=== PATIENT | female | born 1970 | race Caucasian/White ===

== ENCOUNTER 2017-02-27 19:45 | Inpatient (IN) | payer BC, OTHER ==
[~2017-02-27] VITALS: Ht 160 cm; Wt 57.1 kg
[2017-02-27] MEDS ORDERED: MoRPHine SULFATE 2 MG/ML CARP IV STA (20:27)
[2017-02-27] MEDS ORDERED: ONDANSETRON INJ 2 MG/ML 2 ML VIAL IV STA ×2 (20:27→22:07)
[2017-02-27] MEDS ORDERED: SODIUM CHLORIDE 0.9% 1000ML 1,000 ML IV ONE (20:30)
[2017-02-27 20:54] LABS: BASO % 0.4 %; BASO ABS # 0.03 K/uL (0-0.2); COMPLETE YES; EOS % 4.1 %; HEMATOCRIT 39.5 % (37-47); IG% 0.1 %; LYMPH % 11.8 %; LYMPH ABS # 0.99 K/uL (1.2-3.4); MEAN CELL VOLUME 92.7 fL (80-100); MEAN CORPUSCULAR HEMOGLOBIN 31.2 pg (25-34); MEAN CORPUSCULAR HGB CONC 33.7 g/dl (32-36); MEAN PLATELET VOLUME 9.7 fL (7.4-10.4); MONO % 8.7 %; NEUT % 74.9 %; PLATELET COUNT 215 K/uL (130-400); RED BLOOD COUNT 4.26 M/uL (4.2-5.4); WHITE BLOOD COUNT 8.38 K/uL (4.8-10.8)
[2017-02-27 21:11] LABS: ALT/SGPT 21 U/L (12-78); BLOOD UREA NITROGEN 11 mg/dl (7-18); BUN/CREATININE RATIO 11.1 (10-20); CARBON DIOXIDE 28 mmol/L (21-32); CHLORIDE 105 mmol/L (98-107); GLUCOSE 96 mg/dl (70-99); POTASSIUM 3.6 mmol/L (3.5-5.1); SODIUM 141 mmol/L (136-145)
[2017-02-27 21:14] LABS: ALKALINE PHOSPHATASE 44 U/L (45-117); AST/SGOT 19 U/L (15-37)
[2017-02-27 21:40] LABS: URINE APPEARANCE CLEAR (CLEAR); URINE BILIRUBIN NEG (NEG); URINE COLOR YELLOW; URINE NITRITE NEG (NEG); URINE PH 6.5 (4.5-7.5); URINE SPECIFIC GRAVITY 1.014 (1.000-1.030); UROBILINOGEN NEG (NEG)
[2017-02-27 21:46] LABS: MANUAL MICROSCOPIC REQUIRED? NO; REVIEW REQ? NO
[2017-02-27 22:00] LABS: CALCIUM 8.2 mg/dl (8.5-10.1)
[2017-02-27] MEDS ORDERED: SODIUM CHLORIDE 0.9% 1000ML 1,000 ML IV STA (22:07)
[2017-02-27] MEDS ORDERED: KETOROLAC TROMETHAMINE 30 MG/ML VIAL IV STA (22:07)
[2017-02-27] MEDS ORDERED: OPTIRAY 320 IV PRN (22:15)
--- NOTE | 2017-02-27 22:45 | DIAGNOSTIC IMAGING REPORT ---
ABDOMEN AND PELVIS CT WITH IV CONTRAST CT DOSE: 265.19 mGy.cm HISTORY: Pelvic pain acute lower abd pain TECHNIQUE: Multiaxial CT images of the abdomen and pelvis were performed following the use of intravenous contrast. COMPARISON STUDY: None. FINDINGS: Lung bases are considered clear. Several small hypodensities in the liver which are suggestive of small cysts versus small hemangiomas. A potential trace amount of pericholecystic edema. Right upper quadrant ultrasonography is suggested. Kidneys enhance uniformly. There is no evidence for hydronephrosis. Spleen and pancreas appear unremarkable. There are several slightly distended loops of small bowel suggesting a mild reactive ileus. The appendix appears to be normal. There is findings of acute sigmoid diverticulitis. Lateral wall thickening as well as moderate pericolonic infiltrative changes present. There is no evidence for abscess collection or obstructive change. Intrauterine device is present. There is trace amount of free fluid within the pelvic cul-de-sac. IMPRESSION: 1. Acute sigmoid diverticulitis. 2. Moderate wall thickening and moderate pericolonic infiltrative change. 3. No evidence for abscess collection or obstruction. 4. Potential slight gallbladder wall edema and pericholecystic edematous change. Right upper quadrant ultrasonography is suggested as follow-up Electronically signed by: Davin Adkins M.D. 02/27/2017 10:44 PM Dictated Date/Time: 02/27/2017 10:40 PM
[2017-02-27] MEDS ORDERED: METRONIDAZOLE 500MG / 100ML NSS IV STA (22:49)
[2017-02-27] MEDS ORDERED: CIPROFLOXACIN 400MG / 200ML D5W IV STA (22:49)
[2017-02-27] MEDS ORDERED: LACTATED RINGER'S 1000ML 1,000 ML IV SCH (23:30)
[2017-02-27] MEDS ORDERED: BUPRTAB PO (23:49)
[2017-02-27] MEDS ORDERED: FLUT0.15 NAE (23:49)
[2017-02-28 00:06] LABS: MAGNESIUM 2.2 mg/dl (1.8-2.4)
[2017-02-28] MEDS ORDERED: TRAMADOL HCL 50 MG TAB PO PRN (00:30)
[2017-02-28] MEDS ORDERED: ACETAMINOPHEN 325 MG TAB PO PRN (00:30)
[2017-02-28] MEDS ORDERED: ONDANSETRON INJ 2 MG/ML 2 ML VIAL IV PRN (00:30)
[2017-02-28] MEDS ORDERED: LACTATED RINGER'S 1000ML 1,000 ML IV ONE ×2 (00:30→08:45)
[2017-02-28] MEDS ORDERED: LORAZEPAM 2 MG/ML 1 ML VIAL IV PRN (00:30)
[2017-02-28] MEDS ORDERED: PROMETHAZINE HCL INJ 12.5 MG in SODIUM CHLORIDE 0.9% 50ML 50 ML IV PRN (00:30)
[2017-02-28] MEDS ORDERED: ACETAMINOPHEN 325 MG TAB ONE (00:49)
--- NOTE | 2017-02-28 02:08 | EMERGENCY ROOM VISIT NOTE ---
ED Visit Note First contact with patient: 19:58 Chief Complaint: Abdominal pain. History of Present Illness: Ms. Palmer is a 46 year-old white female complaining who ambulates into the ED accompanied by her mother complaining of lower abdominal pain. Historically patient reports no gastrointestinal or pelvic diseases or previous abdominal surgeries. Patient reports an acute onset of lower abdominal pain that started approximately 7 hours ago. She reports initially it was mild and has gradually increased in intensity. She describes her pain as a cramping sensation and places her discomfort throughout the lower abdomen without side prominence. She rates her discomfort 7/10. Her pain is radiating into the back. She has not identified any aggravating or alleviating factors related to the pain. She reports taking a Zantac tablet for her symptoms without relief shortly after the onset. Associated with her pain intermittently she has warm sensations and then chills but denies shelbie fever, intermittently she has lightheadedness and dizziness which tends to be transient, she has been nauseated but has not vomited. She denies any previous similar symptoms. Additionally she does report that she has had an IUD in place for many years and she has noted some minimal spotting today. Patient denies skin eruptions, skin color changes, upper respiratory tract symptoms, shortness of breath, chest pain, diarrhea, constipation, rectal bleeding, black/tarry stools, urinary symptoms, hematuria, vaginal discharge. Review of Systems: As noted above in history of present illness. All body systems were reviewed and found to be negative as noted above. Past Medical History: Seasonal allergies. Current Medications: Wellbutrin, Flonase. Allergies to Medications: Patient denies. Social History: Patient is currently employed; she lives with her son and feels safe in her home environment; she denies tobacco use; she admits to alcohol use. Physical Examination: Vital Signs: Date Time Temp Pulse Resp B/P Pulse Ox O2 Delivery O2 Flow Rate FiO2 02/28/17 01:12 108/56 02/28/17 01:08 62 02/28/17 01:06 72 95 02/28/17 01:01 97/58 02/28/17 00:36 68 16 97 02/28/17 00:31 114/71 02/28/17 00:06 75 97 02/28/17 00:01 105/68 02/27/17 23:41 70 17 02/27/17 23:31 116/64 02/27/17 23:11 76 16 98 02/27/17 23:06 73 15 108/67 97 02/27/17 23:01 77 16 104/64 97 02/27/17 22:56 74 16 106/66 98 02/27/17 22:51 76 17 107/66 98 02/27/17 22:46 73 16 110/64 98 02/27/17 22:41 75 14 108/64 100 02/27/17 22:39 78 16 111/60 99 Room Air 02/27/17 22:38 111/60 02/27/17 22:21 108/72 02/27/17 22:19 88 19 95 02/27/17 22:16 116/75 02/27/17 22:14 76 14 99 02/27/17 22:11 75 16 95/50 98 Room Air 02/27/17 22:09 75 15 85/51 98 Room Air 02/27/17 22:06 100/59 02/27/17 22:05 62 12 98 02/27/17 22:01 92/57 02/27/17 22:00 60 12 95 02/27/17 21:58 94/48 02/27/17 21:55 68 13 98 02/27/17 21:52 70/34 02/27/17 21:50 61 19 98 02/27/17 21:48 82/51 02/27/17 21:45 57 7 97 02/27/17 21:40 61 14 98 02/27/17 21:36 71 02/27/17 21:35 58 16 98 02/27/17 21:31 75/41 02/27/17 21:30 53 10 99 02/27/17 21:26 94 02/27/17 21:25 87 17 99 02/27/17 21:23 84 20 123/74 02/27/17 21:22 123/74 02/27/17 19:53 37.5 91 18 144/79 97 Room Air GENERAL: 46-year-old female in mild to moderate distress due to pain, nontoxic- appearing, febrile and hemodynamically stable. NEUROLOGICAL: Awake, alert and oriented to person, place and time. Answering questions appropriately and following commands. Normal gait. Good hand eye coordination. SKIN: Warm, dry and pink. No soft tissue eruptions or trauma noted. HEENT: Atraumatic and normocephalic. PERRLA. Sclera white and conjunctiva pink. Oral cavity moist and pink. Pharynx is nonerythematous or edematous. Speech normal. No lymphadenopathy. Trachea midline. No jugular venous distention. BACK: No tenderness over the bony spine. No CVA tenderness. THORAX: Lungs sounds are clear to auscultation and equal bilaterally with symmetrical chest wall. No wheezing, rales or rhonchi. No crepitus, tenderness , subcutaneous air or deformities noted. HEART: Regular rate and rhythm. No gallops, rubs or murmurs are appreciated. ABDOMEN: Flat and soft with mild tenderness in the right and left lower quadrants. Decreased bowel sounds in all quadrants. No guarding, rigidity or organomegaly. EXTREMITIES: Moves all extremities well on command and with purpose. All distal neurovascular statuses are intact and equal bilaterally. ED Course: Patient is assessed as noted above. Laboratory Testing: Test 02/27/17 20:40 02/27/17 21:30 Range/Units White Blood Count 8.38 4.8-10.8 K/uL Red Blood Count 4.26 4.2-5.4 M/uL Hemoglobin 13.3 12.0-16.0 g/dL Hematocrit 39.5 37-47 % Mean Corpuscular Volume 92.7 80-100 fL Mean Corpuscular Hemoglobin 31.2 25-34 pg Mean Corpuscular Hemoglobin Concent 33.7 32-36 g/dl Platelet Count 215 130-400 K/uL Mean Platelet Volume 9.7 7.4-10.4 fL Neutrophils (%) (Auto) 74.9 % Lymphocytes (%) (Auto) 11.8 % Monocytes (%) (Auto) 8.7 % Eosinophils (%) (Auto) 4.1 % Basophils (%) (Auto) 0.4 % Neutrophils # (Auto) 6.28 1.4-6.5 K/uL Lymphocytes # (Auto) 0.99 1.2-3.4 K/uL Monocytes # (Auto) 0.73 0.11-0.59 K/uL Eosinophils # (Auto) 0.34 0-0.5 K/uL Basophils # (Auto) 0.03 0-0.2 K/uL RDW Standard Deviation 45.4 36.4-46.3 fL RDW Coefficient of Variation 13.2 11.5-14.5 % Immature Granulocyte % (Auto) 0.1 % Immature Granulocyte # (Auto) 0.01 0.00-0.02 K/uL Sodium Level 141 136-145 mmol/L Potassium Level 3.6 3.5-5.1 mmol/L Chloride Level 105 98-107 mmol/L Carbon Dioxide Level 28 21-32 mmol/L Anion Gap 8.0 3-11 mmol/L Blood Urea Nitrogen 11 7-18 mg/dl Creatinine 1.00 0.60-1.20 mg/dl Est Creatinine Clear Calc Drug Dose 56.9 ml/min Estimated GFR () 78.2 Estimated GFR (Non- 67.5 BUN/Creatinine Ratio 11.1 10-20 Random Glucose 96 70-99 mg/dl Calcium Level 8.2 8.5-10.1 mg/dl Magnesium Level 2.2 1.8-2.4 mg/dl Total Bilirubin 0.4 0.2-1 mg/dl Direct Bilirubin < 0.1 0-0.2 mg/dl Aspartate Amino Transf (AST/SGOT) 19 15-37 U/L Alanine Aminotransferase (ALT/SGPT) 21 12-78 U/L Alkaline Phosphatase 44 45-117 U/L Total Protein 6.3 6.4-8.2 gm/dl Albumin 3.3 3.4-5.0 gm/dl Lipase 152 73-393 U/L Thyroid Stimulating Hormone (TSH) 1.130 0.300-4.500 uIu/ml Urine Color YELLOW Urine Appearance CLEAR CLEAR Urine pH 6.5 4.5-7.5 Urine Specific [place] 1.014 1.000-1.030 Urine Protein NEG NEG Urine Glucose (UA) NEG NEG Urine Ketones NEG NEG Urine Occult Blood TRACE NEG Urine Nitrite NEG NEG Urine Bilirubin NEG NEG Urine Urobilinogen NEG NEG Urine Leukocyte Esterase NEG NEG Urine WBC (Auto) 0 0-5 /hpf Urine RBC (Auto) 0-4 0-4 /hpf Urine Hyaline Casts (Auto) 0 0-5 /lpf Urine Epithelial Cells (Auto) 10-20 0-5 /lpf Urine Bacteria (Auto) NEG NEG Urine Test NEG NEG IV Contrast Abdominal/Pelvic CT: Was reviewed by myself and read by the radiologist and shows finding consistent with acute sigmoid diverticulitis with no evidence of abscess collection or obstructive changes. There were several slight distended loops of small bowel suggestive of reactive ileus. Radiologist also notes a trace amount of pericholecystic edema and recommends right upper quadrant ultrasound. Patient was hydrated with normal saline and received 2 mg of morphine IV for pain and 4 mg of Zofran IV. Shortly after she received her IV morphine her blood pressure dropped into the 70s systolic range and she reported increasing pain and nausea. She was rehydrated with normal saline and her pressure gay to the 90s systolic. She was feeling much better and had decreased pain and nausea. Additionally patient was given 400 mg of ciprofloxacin IV and 500 mg of Flagyl IV for her diverticulitis. Patient was reassessed multiple times during her stay in the emergency department. Patient's case was reviewed with Dr. Caceres; he in the belly assessed the patient we agreed on diagnostic approach, treatment, disposition and plan. Patient's case was consulted with case management and Dr. Silva, [facility] hospitalist, for medical observation/admission. Patient was educated about today's findings. Clinical Impression: Acute diverticulitis. Profound hypertension with morphine. Mild pericholecystic fluid. Acute abdominal pain. Decision-Making: Initially my differential diagnosis I considered appendicitis, ovarian torsion, ovarian cyst rupture, ectopic , perforated viscus and other causes. Disposition and Plan: Patient be brought in the hospital for observation by Dr. Silva; please see his notes and orders for final disposition and plan.
[2017-02-28 02:50] VITALS: BP 104/66; PULSE 68; TEMP 36.7; O2SAT 98
[2017-02-28 02:52] VITALS: BP 104/66; PULSE 68; TEMP 36.7; O2SAT 98; Ht 160 cm; Wt 57.1 kg
[2017-02-28] MEDS ORDERED: LORAZEPAM INJ 0.5 MG in SYRINGE 0.75 ML IV PRN (04:15)
[2017-02-28] MEDS ORDERED: LACTATED RINGER'S 1000ML 1,000 ML IV SCH (04:15)
[2017-02-28] MEDS ORDERED: hydrOXYzine HCL 10 MG TAB PO PRN (04:15)
[2017-02-28] MEDS ORDERED: CALCIUM GLUCONATE 10% 1,000 MG in SODIUM CHLORIDE 0.9% 50ML 50 ML IV STA (05:38)
--- NOTE | 2017-02-28 06:55 | HISTORY & PHYSICAL EXAMINATION ---
DATE OF ADMISSION: 02/28/2017 PRIMARY CARE PHYSICIAN: Dr. Tasha Hernandez. CHIEF COMPLAINT: Abdominal pain. HISTORY OF PRESENT ILLNESS: Hx obtained from px and records. Medical history significant for depression, past tobacco abuse. This afternoon, patient noted hypogastric discomfort, achy, no previous episodes. Good bowel movement,non-bloody.. No fever, no chills. No hematuria. No previous episodes. Coincidentally had peanuts during a marathon yesterday. Brought to the Emergency Room. Blood pressure dropped down to the 70s after being given morphine. CAT scan abdomen and pelvis showed acute sigmoid diverticulitis, moderate wall thickening and moderate pericolonic infiltrative change, no abscess collection. GB thickening. RUQ US recommended. Patient was given Cipro and Flagyl in the Emergency Room. MEDICAL HISTORY: As above. No previous endoscopies. SURGERIES: parotid tumor excision. HOME MEDICATIONS: Include bupropion, fluticasone. ALLERGIES: ATIVAN AND PREDNISONE CAUSING EMOTIONALITY. FAMILY HISTORY: Unknown. The patient adopted. SOCIAL HISTORY: [email or web address] employee. REVIEW OF SYSTEMS: As per HPI, all other ROS negative. PHYSICAL EXAMINATION: VITAL SIGNS: Blood pressure was noted to be initially 144/69, later 72/50, later 116/75; pulse rate 70, RR 17, temperature 37.5, sats 97% on room air. GENERAL: Noted to be anxious, no respiratory distress. SKIN: Normal color. HEENT: [place] palpebral conjunctivae. Dry mucosa. NECK: No JVD. supple CHEST: Clear to auscultation. HEART: RRR ABDOMEN: Hypogastric tenderness. EXTREMITIES: No edema. no tenderness NEUROLOGIC: No gross focality. LABORATORY DATA: Hemoglobin was noted to be 13, hematocrit 39, white cells 8.3, platelets 215. Sodium 140, potassium 3.6, chloride 105, CO2 28, BUN 20 creatinine 1, glucose was noted to be 96. LFTs normal. IMAGING DATA: CT of the abdomen and pelvis as above. ASSESSMENT: 1. Acute diverticulitis patient not septic 2. gallbladder edema on CT cholecystitis vs over-read. no RUQ tenderness on clinical exam 3. narcotic sensitivity 4. past tobacco use. PLAN: GMF IVF, bowel rest for now. analgesia (no Morphine given marked sensitivity,add Morphine to ADR list for future precaution) Cipro and Flagyl. Gallbladder ultrasound. RE abn GB on CT Outpatient colonoscopy Surgery opinion if GB US shows definite cholecystitis NPO. sips for now, advance to clears if GB US negative for cholecystitis DVT prophylaxis, SCDs. Full code MTDD
[2017-02-28] MEDS ORDERED: CIPROFLOXACIN 500 MG TAB PO SCH (08:00)
[2017-02-28] MEDS ORDERED: METRONIDAZOLE / NSS 500 MG in PREMIXED NSS 100 ML IV SCH (08:00)
[2017-02-28] MEDS ORDERED: METRONIDAZOLE 500 MG TAB PO SCH (08:00)
--- NOTE | 2017-02-28 08:10 | DIAGNOSTIC IMAGING REPORT ---
ABDOMINAL ULTRASOUND, RIGHT UPPER QUADRANT HISTORY: Abdominal pain. COMPARISON: CT of the abdomen and pelvis February 27, 2017 FINDINGS: Liver morphology is normal. Several hepatic cysts are noted. There is no biliary ductal dilatation. Pancreas is unremarkable. Sludge is noted within the gallbladder. There are suspected tiny calculi within the gallbladder. There is no significant gallbladder wall thickening. There is no right hydronephrosis. IMPRESSION: 1. Gallbladder sludge and suspected small stones within the gallbladder. No evidence of acute cholecystitis. 2. No biliary ductal dilatation. 3. Several hepatic cysts. Electronically signed by: Abraham Tineo M.D. 02/28/2017 8:09 AM Dictated Date/Time: 02/28/2017 8:07 AM
[2017-02-28] MEDS: BuPROPion XL 150 MG TABCR PO SCH (08:21)
[2017-02-28] MEDS: FLUTICASONE PROPIONATE NA SPR 16 GM BTL NAE SCH (08:21)
[2017-02-28] MEDS: IBUPROFEN 200 MG TAB PO PRN (08:22)
[2017-02-28 08:57] VITALS: BP 107/70; PULSE 67; TEMP 36.8; O2SAT 98
[2017-02-28 09:45] LABS: BUN/CREATININE RATIO 7.5 (10-20); CREATININE 0.85 mg/dl (0.60-1.20); POTASSIUM 3.6 mmol/L (3.5-5.1)
[2017-02-28 09:59] LABS: CALCIUM 8.3 mg/dl (8.5-10.1)
[2017-02-28] MEDS ORDERED: CIPROFLOXACIN 500 MG TAB PO ONE (10:00)
[2017-02-28] MEDS ORDERED: CIPROFLOXACIN / D5W 400 MG in PREMIXED IN D5W 200 ML IV SCH (10:00)
[2017-02-28] MEDS: KETOROLAC TROMETHAMINE 30 MG/ML VIAL IV PRN ×2 (11:38→20:31)
[2017-02-28] MEDS: METRONIDAZOLE 500 MG TAB PO SCH ×2 (13:40→20:29)
[2017-02-28 15:10] VITALS: BP 116/71; PULSE 74; TEMP 36.5; O2SAT 97
--- NOTE | 2017-02-28 16:56 | Progress Note ---
Subjective Date of Service: February 28, 2017. Subjective Pt evaluation today including: conversation w/ patient, conversation w/ family , physical exam, lab review, review of studies, review of inpatient medication list Saw/examined the patient in room 461 She is doing okay, pain has subsided States she came in with lower abdominal pain; no nausea/vomiting no fevers/chills one episode of diarrhea earlier today Review of Systems Constitutional: No chills, No fever Respiratory: No shortness of breath Cardiac: No chest pain Abdomen: + diarrhea, + pain, No GI bleeding, No constipation, No nausea, No vomiting Medications Current Inpatient Medications Medications (Trade) Dose Ordered Sig/Peg Route Start Time Stop Time Status Last Admin Dose Admin Ioversol (Optiray 320) 100 ml UD PRN IV 02/27/17 22:15 03/03/17 22:14 Acetaminophen (Tylenol Tab) 650 mg Q4H PRN PO 02/28/17 00:30 03/30/17 00:29 Ketorolac Tromethamine (Toradol Inj) 30 mg Q6H PRN IV 02/28/17 00:30 03/05/17 00:29 02/28/17 11:38 30 MG Ibuprofen (Advil Tab) 400 mg Q6H PRN PO 02/28/17 00:30 03/30/17 00:29 02/28/17 08:22 400 MG Ondansetron HCl 4 mg 4 mg Q6H PRN IV 02/28/17 00:30 03/30/17 00:29 Promethazine HCl/ Sodium Chloride (Phenergan Inj/ Nss 50ml) 50.5 ml @ 204 mls/hr Q6H PRN IV 02/28/17 00:30 03/30/17 00:29 Tramadol HCl (Ultram Tab) 25 mg Q6H PRN PO 02/28/17 00:30 03/30/17 00:29 Bupropion HCl (Wellbutrin-Xl Tab) 150 mg QAM PO 02/28/17 08:00 03/30/17 08:59 02/28/17 08:21 150 MG Fluticasone Propionate (Flonase Nasal [place]) 2 sprays QAM MARGIE 02/28/17 08:00 03/30/17 08:59 02/28/17 08:21 2 SPRAYS Hydroxyzine HCl 10 mg 10 mg Q6H PRN PO 02/28/17 04:15 03/30/17 04:14 Lactated Ringer's (Lr 1000ml) 1,000 ml @ 75 mls/hr [id number] ONCE IV 02/28/17 08:45 02/28/17 22:04 02/28/17 09:36 75 MLS/HR Ciprofloxacin (Cipro Tab) 500 mg BID PO 02/28/17 20:00 03/10/17 19:59 Metronidazole (Flagyl Tab) 500 mg TID PO 02/28/17 14:00 03/10/17 13:59 02/28/17 13:40 500 MG Objective Vital Signs Date Time Temp Pulse Resp B/P Pulse Ox O2 Delivery O2 Flow Rate FiO2 02/28/17 15:10 36.5 74 16 116/71 97 Room Air 02/28/17 09:00 Room Air 02/28/17 08:57 36.8 67 16 107/70 98 Room Air 02/28/17 02:52 36.7 68 16 104/66 98 Room Air 98.0 02/28/17 02:50 36.7 68 104/66 98 Room Air 02/28/17 01:12 108/56 02/28/17 01:08 62 02/28/17 01:06 72 95 02/28/17 01:01 97/58 02/28/17 00:36 68 16 97 02/28/17 00:31 114/71 02/28/17 00:06 75 97 02/28/17 00:01 105/68 02/27/17 23:41 70 17 02/27/17 23:31 116/64 02/27/17 23:11 76 16 98 02/27/17 23:06 73 15 108/67 97 02/27/17 23:01 77 16 104/64 97 02/27/17 22:56 74 16 106/66 98 02/27/17 22:51 76 17 107/66 98 02/27/17 22:46 73 16 110/64 98 02/27/17 22:41 75 14 108/64 100 02/27/17 22:39 78 16 111/60 99 Room Air 02/27/17 22:38 111/60 02/27/17 22:21 108/72 02/27/17 22:19 88 19 95 02/27/17 22:16 116/75 02/27/17 22:14 76 14 99 02/27/17 22:11 75 16 95/50 98 Room Air 02/27/17 22:09 75 15 85/51 98 Room Air 02/27/17 22:06 100/59 02/27/17 22:05 62 12 98 02/27/17 22:01 92/57 02/27/17 22:00 60 12 95 02/27/17 21:58 94/48 02/27/17 21:55 68 13 98 02/27/17 21:52 70/34 02/27/17 21:50 61 19 98 02/27/17 21:48 82/51 02/27/17 21:45 57 7 97 02/27/17 21:40 61 14 98 02/27/17 21:36 71 02/27/17 21:35 58 16 98 02/27/17 21:31 75/41 02/27/17 21:30 53 10 99 02/27/17 21:26 94 02/27/17 21:25 87 17 99 02/27/17 21:23 84 20 123/74 02/27/17 21:22 123/74 02/27/17 19:53 37.5 91 18 144/79 97 Room Air Physical Exam General Appearance: WD/WN, no apparent distress Respiratory/Chest: lungs clear, normal breath sounds, no respiratory distress, no accessory muscle use Cardiovascular: regular rate, rhythm, no edema, no murmur Abdomen: normal bowel sounds, soft, + tenderness (mild tenderness to palpation) Extremities: normal inspection, no pedal edema Neurologic/Psychiatric: no motor/sensory deficits, alert, normal mood/affect Laboratory Results Last 24 Hours Test 02/27/17 20:40 02/27/17 21:30 02/28/17 09:05 White Blood Count 8.38 K/uL Red Blood Count 4.26 M/uL Hemoglobin 13.3 g/dL Hematocrit 39.5 % Mean Corpuscular Volume 92.7 fL Mean Corpuscular Hemoglobin 31.2 pg Mean Corpuscular Hemoglobin Concent 33.7 g/dl Platelet Count 215 K/uL Mean Platelet Volume 9.7 fL Neutrophils (%) (Auto) 74.9 % Lymphocytes (%) (Auto) 11.8 % Monocytes (%) (Auto) 8.7 % Eosinophils (%) (Auto) 4.1 % Basophils (%) (Auto) 0.4 % Neutrophils # (Auto) 6.28 K/uL Lymphocytes # (Auto) 0.99 K/uL Monocytes # (Auto) 0.73 K/uL Eosinophils # (Auto) 0.34 K/uL Basophils # (Auto) 0.03 K/uL RDW Standard Deviation 45.4 fL RDW Coefficient of Variation 13.2 % Immature Granulocyte % (Auto) 0.1 % Immature Granulocyte # (Auto) 0.01 K/uL Sodium Level 141 mmol/L 144 mmol/L Potassium Level 3.6 mmol/L 3.6 mmol/L Chloride Level 105 mmol/L 110 mmol/L Carbon Dioxide Level 28 mmol/L 28 mmol/L Anion Gap 8.0 mmol/L 6.0 mmol/L Blood Urea Nitrogen 11 mg/dl 6 mg/dl Creatinine 1.00 mg/dl 0.85 mg/dl Est Creatinine Clear Calc Drug Dose 56.9 ml/min 68.4 ml/min Estimated GFR () 78.2 95.2 Estimated GFR (Non- 67.5 82.2 BUN/Creatinine Ratio 11.1 7.5 Random Glucose 96 mg/dl 86 mg/dl Calcium Level 8.2 mg/dl 8.3 mg/dl Magnesium Level 2.2 mg/dl Total Bilirubin 0.4 mg/dl 0.6 mg/dl Direct Bilirubin < 0.1 mg/dl Aspartate Amino Transf (AST/SGOT) 19 U/L 19 U/L Alanine Aminotransferase (ALT/SGPT) 21 U/L 22 U/L Alkaline Phosphatase 44 U/L 32 U/L Total Protein 6.3 gm/dl 5.6 gm/dl Albumin 3.3 gm/dl 2.8 gm/dl Lipase 152 U/L Thyroid Stimulating Hormone (TSH) 1.130 uIu/ml Urine Color YELLOW Urine Appearance CLEAR Urine pH 6.5 Urine Specific [place] 1.014 Urine Protein NEG Urine Glucose (UA) NEG Urine Ketones NEG Urine Occult Blood TRACE Urine Nitrite NEG Urine Bilirubin NEG Urine Urobilinogen NEG Urine Leukocyte Esterase NEG Urine WBC (Auto) 0 /hpf Urine RBC (Auto) 0-4 /hpf Urine Hyaline Casts (Auto) 0 /lpf Urine Epithelial Cells (Auto) 10-20 /lpf Urine Bacteria (Auto) NEG Urine Test NEG Globulin 2.8 gm/dl Albumin/Globulin Ratio 1.0 Assessment and Plan This is a 46 year old female with a PMH of depression presents with lower abdominal pain, found to have acute diverticulitis Acute Sigmoid Diverticulitis Abdominal/Pelvis CT Acute sigmoid diverticulitis RUQ U/S Gallbladder sludge and suspected small stones within the gallbladder. No evidence of acute cholecystitis. patient started on Cipro + Flagyl Toradol PRN for pain IVFs, clears will advance diet slowly possible d/c in AM if tolerating PO diet Depression controlled; continue Wellbutrin DVT ppx SCDs FULL CODE
[2017-02-28] MEDS: CIPROFLOXACIN 500 MG TAB PO SCH (20:28)
[2017-02-28 23:00] VITALS: BP 104/64; PULSE 68; TEMP 36.7; O2SAT 96
[2017-03-01 07:02] LABS: HEMATOCRIT 37.3 % (37-47); MEAN CORPUSCULAR HEMOGLOBIN 30.5 pg (25-34); MEAN CORPUSCULAR HGB CONC 32.4 g/dl (32-36); MEAN PLATELET VOLUME 9.5 fL (7.4-10.4); PLATELET COUNT 198 K/uL (130-400); RED BLOOD COUNT 3.97 M/uL (4.2-5.4); WHITE BLOOD COUNT 4.05 K/uL (4.8-10.8)
[2017-03-01 07:22] VITALS: BP 123/73; PULSE 69; TEMP 36.7; O2SAT 98
[2017-03-01 07:41] LABS: BUN/CREATININE RATIO 7.3 (10-20); CALCIUM 8.7 mg/dl (8.5-10.1); CREATININE 0.91 mg/dl (0.60-1.20); POTASSIUM 4.2 mmol/L (3.5-5.1)
[2017-03-01] MEDS: CIPROFLOXACIN 500 MG TAB PO SCH ×2 (08:07→16:45)
[2017-03-01] MEDS: BuPROPion XL 150 MG TABCR PO SCH (08:07)
[2017-03-01] MEDS: METRONIDAZOLE 500 MG TAB PO SCH ×3 (08:07→16:44)
[2017-03-01] MEDS: FLUTICASONE PROPIONATE NA SPR 16 GM BTL NAE SCH (08:08)
--- NOTE | 2017-03-01 10:50 | Progress Note ---
Subjective Date of Service: March 01, 2017. Subjective Pt evaluation today including: conversation w/ patient, physical exam, lab review, review of studies, review of inpatient medication list Saw/examined the patient in room 461 She is doing okay, tolerated full liquids; abdominal pain subsided, there is some tenderness to deep palpation c/o headache this morning Review of Systems Constitutional: No chills, No fever Respiratory: No cough, No shortness of breath, No sputum Cardiac: No chest pain, No edema, No palpitations Abdomen: + diarrhea, + pain, + see HPI, No GI bleeding, No constipation, No nausea, No vomiting Female : No dysuria Medications Current Inpatient Medications Medications (Trade) Dose Ordered Sig/Peg Route Start Time Stop Time Status Last Admin Dose Admin Ioversol (Optiray 320) 100 ml UD PRN IV 02/27/17 22:15 03/03/17 22:14 Acetaminophen (Tylenol Tab) 650 mg Q4H PRN PO 02/28/17 00:30 03/30/17 00:29 Ketorolac Tromethamine (Toradol Inj) 30 mg Q6H PRN IV 02/28/17 00:30 03/05/17 00:29 02/28/17 20:31 30 MG Ibuprofen (Advil Tab) 400 mg Q6H PRN PO 02/28/17 00:30 03/30/17 00:29 02/28/17 08:22 400 MG Ondansetron HCl 4 mg 4 mg Q6H PRN IV 02/28/17 00:30 03/30/17 00:29 Promethazine HCl/ Sodium Chloride (Phenergan Inj/ Nss 50ml) 50.5 ml @ 204 mls/hr Q6H PRN IV 02/28/17 00:30 03/30/17 00:29 Tramadol HCl (Ultram Tab) 25 mg Q6H PRN PO 02/28/17 00:30 03/30/17 00:29 Bupropion HCl (Wellbutrin-Xl Tab) 150 mg QAM PO 02/28/17 08:00 03/30/17 08:59 03/01/17 08:07 150 MG Fluticasone Propionate (Flonase Nasal [place]) 2 sprays QAM MARGIE 02/28/17 08:00 03/30/17 08:59 03/01/17 08:08 2 SPRAYS Hydroxyzine HCl (Vistaril Tab) 10 mg Q6H PRN PO 02/28/17 04:15 03/30/17 04:14 Ciprofloxacin (Cipro Tab) 500 mg BID PO 02/28/17 20:00 03/10/17 19:59 03/01/17 08:07 500 MG Metronidazole (Flagyl Tab) 500 mg TID PO 02/28/17 14:00 03/10/17 13:59 03/01/17 08:07 500 MG Objective Vital Signs Date Time Temp Pulse Resp B/P Pulse Ox O2 Delivery O2 Flow Rate FiO2 03/01/17 10:08 Room Air 03/01/17 07:22 36.7 69 16 123/73 98 Room Air 03/01/17 00:00 Room Air 02/28/17 23:00 36.7 68 20 104/64 96 Room Air 02/28/17 16:00 Room Air 02/28/17 15:10 36.5 74 16 116/71 97 Room Air Physical Exam General Appearance: no apparent distress Respiratory/Chest: chest non-tender, lungs clear, normal breath sounds, no respiratory distress, no accessory muscle use Cardiovascular: regular rate, rhythm, no edema, no murmur Abdomen: normal bowel sounds, soft, + tenderness (mildly tender at the lower abdomen) Laboratory Results Last 24 Hours Test 03/01/17 06:49 White Blood Count 4.05 K/uL Red Blood Count 3.97 M/uL Hemoglobin 12.1 g/dL Hematocrit 37.3 % Mean Corpuscular Volume 94.0 fL Mean Corpuscular Hemoglobin 30.5 pg Mean Corpuscular Hemoglobin Concent 32.4 g/dl RDW Standard Deviation 45.9 fL RDW Coefficient of Variation 13.2 % Platelet Count 198 K/uL Mean Platelet Volume 9.5 fL Sodium Level 145 mmol/L Potassium Level 4.2 mmol/L Chloride Level 111 mmol/L Carbon Dioxide Level 28 mmol/L Anion Gap 6.0 mmol/L Blood Urea Nitrogen 7 mg/dl Creatinine 0.91 mg/dl Est Creatinine Clear Calc Drug Dose 63.9 ml/min Estimated GFR () 87.7 Estimated GFR (Non- 75.7 BUN/Creatinine Ratio 7.3 Random Glucose 91 mg/dl Calcium Level 8.7 mg/dl Assessment and Plan This is a 46 year old female with a PMH of depression presents with lower abdominal pain, found to have acute diverticulitis Acute Sigmoid Diverticulitis 03/01 patient is doing better, tolerating full liquids will advance diet for lunch to a low residue diet if tolerating it well, she can be d/c'd home with abx. course no white count, afebrile, doing well 02/28 Abdominal/Pelvis CT Acute sigmoid diverticulitis RUQ U/S Gallbladder sludge and suspected small stones within the gallbladder. No evidence of acute cholecystitis. patient started on Cipro + Flagyl Toradol PRN for pain IVFs, clears will advance diet slowly possible d/c in AM if tolerating PO diet Depression controlled; continue Wellbutrin DVT ppx SCDs FULL CODE
[2017-03-01] MEDS ORDERED: CPR500 PO (10:51)
[2017-03-01] MEDS ORDERED: MTR500 PO (10:51)
--- NOTE | 2017-03-01 10:55 | Discharge Instructions ---
Discharge Instructions Date of Service March 01, 2017. Admission Reason for Admission: Diverticulitis Discharge Discharge Diagnosis / Problem: Mild Acute Sigmoid Diverticulitis Discharge Goals Goal(s): Decrease discomfort, Improve function, Diagnostic testing, Therapeutic intervention Activity Recommendations Activity Limitations: resume your previous activity . Instructions / Follow-Up Instructions / Follow-Up Please follow-up with Dr. Madrigal (covering for Dr. Hernandez) on March 07 at 10:25AM * You will be discharged with Cipro and Flagyl (antibiotics) for four more days to complete a seven day course * You should have a colonoscopy about 4-6 weeks after this episode of diverticulitis for further evaluation * Primary care should evaluate L chest wall tenderness - you may need an ultrasound to rule out breast pathology Current Hospital Diet Patient's current hospital diet: Low Fiber Diet Discharge Diet Recommended Diet: Low Fiber Diet Pending Studies Studies pending at discharge: no Medical Emergencies . Who to Call and When: Medical Emergencies: If at any time you feel your situation is an emergency, please call 911 immediately. . Non-Emergent Contact Non-Emergency issues call your: Primary Care Provider . . "Provider Documentation" section prepared by Christine Rhoades. . VTE Core Measure Inpt VTE Proph given/why not?: Treatment not indicated (ambulation)
[2017-03-01 10:59] VITALS: BP 123/73; PULSE 69; TEMP 36.7; O2SAT 98
--- NOTE | 2017-03-01 10:59 | Discharge Summary ---
Discharge Summary Date of Service March 01, 2017. Discharge Summary Admission Date: February 28, 2017 at 00:15 Discharge Date: March 01, 2017 Discharge Disposition: Home Principal Diagnosis: Mild Acute Sigmoid Diverticulitis Medication Reconciliation New Medications: Ciprofloxacin (Ciprofloxacin HCl) 500 Mg Tab 500 MG PO BID for 4 Days, #8 TAB Metronidazole (Metronidazole) 500 Mg Tab 500 MG PO TID for 4 Days, #12 TAB Continued Medications: Bupropion Hcl (Wellbutrin Xl) 150 Mg Tab 1 TAB PO QAM for 30 Days, #30 TAB Fluticasone Propionate (Nasal) (Flonase Allergy Relief) 50 Mcg/Act Spr 2 SPRAYS MARGIE QAM Admission Information Physical Exam (per Admitting): DATE OF ADMISSION: 02/28/2017 PRIMARY CARE PHYSICIAN: Dr. Tasha Hernandez. CHIEF COMPLAINT: Abdominal pain. HISTORY OF PRESENT ILLNESS: Hx obtained from px and records. Medical history significant for depression, past tobacco abuse. This afternoon, patient noted hypogastric discomfort, achy, no previous episodes. Good bowel movement,non-bloody.. No fever, no chills. No hematuria. No previous episodes. Coincidentally had peanuts during a marathon yesterday. Brought to the Emergency Room. Blood pressure dropped down to the 70s after being given morphine. CAT scan abdomen and pelvis showed acute sigmoid diverticulitis, moderate wall thickening and moderate pericolonic infiltrative change, no abscess collection. GB thickening. RUQ US recommended. Patient was given Cipro and Flagyl in the Emergency Room. MEDICAL HISTORY: As above. No previous endoscopies. SURGERIES: parotid tumor excision. HOME MEDICATIONS: Include bupropion, fluticasone. ALLERGIES: ATIVAN AND PREDNISONE CAUSING EMOTIONALITY. FAMILY HISTORY: Unknown. The patient adopted. SOCIAL HISTORY: [employer] employee. REVIEW OF SYSTEMS: As per HPI, all other ROS negative. PHYSICAL EXAMINATION: VITAL SIGNS: Blood pressure was noted to be initially 144/69, later 72/50, later 116/75; pulse rate 70, RR 17, temperature 37.5, sats 97% on room air. GENERAL: Noted to be anxious, no respiratory distress. SKIN: Normal color. HEENT: [place] palpebral conjunctivae. Dry mucosa. NECK: No JVD. supple CHEST: Clear to auscultation. HEART: RRR ABDOMEN: Hypogastric tenderness. EXTREMITIES: No edema. no tenderness NEUROLOGIC: No gross focality. LABORATORY DATA: Hemoglobin was noted to be 13, hematocrit 39, white cells 8.3, platelets 215. Sodium 140, potassium 3.6, chloride 105, CO2 28, BUN 20 creatinine 1, glucose was noted to be 96. LFTs normal. IMAGING DATA: CT of the abdomen and pelvis as above. ASSESSMENT: 1. Acute diverticulitis patient not septic 2. gallbladder edema on CT cholecystitis vs over-read. no RUQ tenderness on clinical exam 3. narcotic sensitivity 4. past tobacco use. PLAN: GMF IVF, bowel rest for now. analgesia (no Morphine given marked sensitivity,add Morphine to ADR list for future precaution) Cipro and Flagyl. Gallbladder ultrasound. RE abn GB on CT Outpatient colonoscopy Surgery opinion if GB US shows definite cholecystitis NPO. sips for now, advance to clears if GB US negative for cholecystitis DVT prophylaxis, SCDs. Full code Hospital Course This is a 46 year old female with a PMH of depression presents with lower abdominal pain, found to have acute diverticulitis Acute Sigmoid Diverticulitis 03/01 patient is doing better, tolerating full liquids will advance diet for lunch to a low residue diet if tolerating it well, she can be d/c'd home with abx. course no white count, afebrile, doing well 02/28 Abdominal/Pelvis CT Acute sigmoid diverticulitis RUQ U/S Gallbladder sludge and suspected small stones within the gallbladder. No evidence of acute cholecystitis. patient started on Cipro + Flagyl Toradol PRN for pain IVFs, clears will advance diet slowly possible d/c in AM if tolerating PO diet Depression controlled; continue Wellbutrin DVT ppx SCDs FULL CODE Total time spent on discharge = 20 minutes This includes examination of the patient, discharge planning, medication reconciliation, and communication with other providers. Discharge Instructions Please follow-up with Dr. Madrigal (covering for Dr. Hernandez) on March 07 at 10:25AM * You will be discharged with Cipro and Flagyl (antibiotics) for four more days to complete a seven day course * You should have a colonoscopy about 4-6 weeks after this episode of diverticulitis for further evaluation * Primary care should evaluate L chest wall tenderness - you may need an ultrasound to rule out breast pathology Additional Copies To Martha Madrigal M.D.
[2017-03-01] MEDS: IBUPROFEN 200 MG TAB PO PRN (11:59)
[2017-03-01 14:55] VITALS: BP 115/74; PULSE 77; TEMP 36.9; O2SAT 97
[2017-03-01] MEDS: KETOROLAC TROMETHAMINE 30 MG/ML VIAL IV PRN (15:19)
[2017-03-01 15:57] LABS: URINE APPEARANCE CLEAR (CLEAR); URINE BILIRUBIN NEG (NEG); URINE COLOR YELLOW; URINE NITRITE NEG (NEG); URINE SPECIFIC GRAVITY 1.008 (1.000-1.030); UROBILINOGEN NEG (NEG)
[2017-03-01 16:03] LABS: MANUAL MICROSCOPIC REQUIRED? NO; REVIEW REQ? NO
== END 2017-03-01 17:40 | disposition home or self-care (01) | DRG 392 ==
LOC: ENRESERVTM → ENRESERVDT → C.EDB 19:47 → C.MS4W 02-28 00:15
PROVIDERS: ADMIT Internal Medicine; ATTEND Family Medicine
DX: K57.32 Diverticulitis of large intestine without perforation or abscess without bleeding (principal); F32.9 Major depressive disorder, single episode, unspecified; J30.2 Other seasonal allergic rhinitis; K82.8 Other specified diseases of gallbladder; K81.9 Cholecystitis, unspecified; Z88.5 Allergy status to narcotic agent; Z79.51 Long term (current) use of inhaled steroids; Z87.891 Personal history of nicotine dependence

== ENCOUNTER 2017-12-24 22:59 | Emergency (ER) | payer OTHER ==
[~2017-12-24] VITALS: Ht 157.5 cm; Wt 60.2 kg
[~2017-12-24 22:59] MED LIST: BUPRTAB PO; CPR500 PO; FLUT0.15 NAE; MTR500 PO
[2017-12-24 23:04] VITALS: TEMP 36.4; Ht 157.5 cm; Wt 60.2 kg
[2017-12-24] MEDS ORDERED: ONDANSETRON INJ 2 MG/ML 2 ML VIAL IV STA (23:56)
[2017-12-25] MEDS ORDERED: SODIUM CHLORIDE 0.9% 1000ML 1,000 ML IV ONE ×2
[2017-12-25 00:31] VITALS: O2SAT 96
[2017-12-25 00:41] LABS: BASO % 0.2 %; BASO ABS # 0.02 K/uL (0-0.2); EOS % 1.7 %; EOS ABS # 0.19 K/uL (0-0.5); HEMATOCRIT 43.6 % (37-47); IG# 0.03 K/uL (0.00-0.02); LYMPH % 3.5 %; LYMPH ABS # 0.39 K/uL (1.2-3.4); MEAN CELL VOLUME 90.5 fL (80-100); MEAN CORPUSCULAR HEMOGLOBIN 31.1 pg (25-34); MEAN CORPUSCULAR HGB CONC 34.4 g/dl (32-36); MEAN PLATELET VOLUME 9.8 fL (7.4-10.4); MONO % 7.2 %; NEUT % 87.1 %; NEUT ABS # 9.72 K/uL (1.4-6.5); PLATELET COUNT 212 K/uL (130-400); RED CELL DISTRIBUTION WIDTH CV 13.2 % (11.5-14.5); RED CELL DISTRIBUTION WIDTH SD 43.7 fL (36.4-46.3); WHITE BLOOD COUNT 11.15 K/uL (4.8-10.8)
[2017-12-25] MEDS ORDERED: FIBER PO (00:47)
[2017-12-25] MEDS ORDERED: CLR10 PO (00:47)
[2017-12-25] MEDS ORDERED: MULT-506 PO (00:47)
[2017-12-25] MEDS ORDERED: CHOL1000 PO (00:47)
[2017-12-25 00:58] LABS: ALBUMIN 3.6 gm/dl (3.4-5.0); ALT/SGPT 21 U/L (12-78); AST/SGOT 18 U/L (15-37); BLOOD UREA NITROGEN 24 mg/dl (7-18); CALCIUM 8.3 mg/dl (8.5-10.1); CARBON DIOXIDE 25 mmol/L (21-32); CREATININE 0.81 mg/dl (0.60-1.20); GLUCOSE 107 mg/dl (70-99); LIPASE 95 U/L (73-393); POTASSIUM 3.9 mmol/L (3.5-5.1); SODIUM 141 mmol/L (136-145)
[2017-12-25 01:01] LABS: ALKALINE PHOSPHATASE 52 U/L (45-117); TOTAL PROTEIN 6.8 gm/dl (6.4-8.2)
[2017-12-25] MEDS ORDERED: ONDANSETRON HOME PACK 4MG OD TAB PO ONE (03:45)
[2017-12-25] MEDS ORDERED: ONDA4TAB10 SL (03:47)
[2017-12-25 04:09] VITALS: BP 113/68; PULSE 80; O2SAT 98
--- NOTE | 2017-12-25 06:59 | DIAGNOSTIC IMAGING REPORT ---
ABDOMEN 2VIEW W/PA CHEST RTN CLINICAL HISTORY: Epigastric abd pain. NVD pain. Nausea. COMPARISON STUDY: No previous studies for comparison. FINDINGS: The soft tissues, psoas shadows, renal outlines and intestinal gas pattern appear normal. There is no evidence for bowel obstruction. There is no evidence for free intraperitoneal air. No abnormal abdominal calcifications are seen. A frontal view of the chest was performed and is unremarkable. IMPRESSION: Normal study. The above report was generated using voice recognition software. It may contain grammatical, syntax or spelling errors. Electronically signed by: Davin Adkins M.D. 12/25/2017 6:58 AM Dictated Date/Time: 12/25/2017 6:57 AM
--- NOTE | 2017-12-26 18:19 | EMERGENCY ROOM VISIT NOTE ---
History First contact with patient: 23:43 Chief Complaint: GI ASSESSMENT Stated Complaint: DEHYDRATED,NAUSEA,DIARRHEA,DIVERTICULITIS Nursing Triage Summary: PT presents with upper quadrant abd pain started several hrs ago, PT has intermittent sharp stabbing pain. HX of diverticulitis. PT ate trail mix today states "I have had several different doctors tell me that it is ok now to eat lots of nuts even with diverticulitis" PT has vomiting and diarrhea. PT also has headache. History of Present Illness The patient is a 47 year old female who presents to the Emergency Room with complaints of nausea, vomiting, and diarrhea that began earlier this morning. The patient states that she is training for a race, and ran 12 miles yesterday, and 8 miles this morning. She was returning to her car after running 8 miles this morning she had the epigastric discomfort and multiple episodes of vomiting. The patient states that she did have some trail mix prior to running , and is concerned because they were not in the trail mix. She does report a history of diverticulitis about 2 years ago, although her pain today does not feel similar to that. The patient has not had fever or chills. She reports having more than 10 episodes of diarrhea today. She tried to sip fluids at home , but is not able to tolerate this, prompting her presentation to the department. The patient denies chance of . She rates her current discomfort a 7/10. Review of Systems More than 10 systems were reviewed and otherwise negative with the exception of history of present illness. Past Medical/Surgical History Medical Problems: (1) Diverticulitis (2) History of depression Family History Not obtainable due to adoption Social History Smoking Status: Never Smoker Alcohol Use: occasionally Marital Status: single Housing Status: lives alone Occupation Status: employed Current/Historical Medications Scheduled Bupropion Hcl (Wellbutrin Xl), 150 MG PO QAM Cholecalciferol (Vitamin D3), 1 TAB PO DAILY Fiber Laxative (Fiber Laxative), 2 TABS PO DAILY Fluticasone Propionate (Nasal) (Flonase Allergy Relief), 2 SPRAYS MARGIE QAM Loratadine (Claritin), 10 MG PO DAILY Multivitamin (Multivitamin), 1 TAB PO DAILY Ondasetron Odt (Zofran Odt), 4 MG SL Q6H Physical Exam Vital Signs Date Time Temp Pulse Resp B/P (MAP) Pulse Ox O2 Delivery O2 Flow Rate FiO2 3/19/18 04:09 80 18 113/68 98 Room Air 12/25/17 03:40 89 20 105/73 97 Room Air 12/25/17 03:04 86 16 96/64 98 Room Air 12/25/17 01:04 78 102/78 86 124/73 85 130/71 12/25/17 01:04 86 18 124/73 97 Room Air 12/25/17 00:31 86 12/25/17 00:31 96 Room Air 12/24/17 23:04 36.4 94 18 111/70 98 Room Air Physical Exam VITALS: Vitals are noted on the nurse's note and reviewed by myself. Vital signs stable. GENERAL: Well-developed, well-nourished, white female, who is in no acute distress and resting comfortably. Patient is cooperative with the examination. HEAD: Normocephalic atraumatic. EARS: External ear normal. External auditory canals clear, tympanic membranes pearly love without erythema or effusion bilaterally. EYES: Pupils equal round and reactive to light and accommodation. Conjunctivae without injection, sclerae without icterus. Extraocular movements intact. NOSE: Patent, turbinates without inflammation or discharge. MOUTH: Mucous membranes dry NECK: Supple without nuchal rigidity. No lymphadenopathy. No thyromegaly. Cervical spine is nontender. HEART: Regular rate and rhythm without murmurs gallops or rubs. LUNGS: Clear to auscultation bilaterally without wheezes, rales or rhonchi. No retractions or accessory muscle use. ABDOMEN: Positive normal bowel sounds x 4. Soft with very mild epigastric tenderness. No lateral or lower tenderness. No CVA tenderness. MUSCULOSKELETAL: No muscle atrophy, erythema, or edema noted. Full range of motion in all extremities. Medical Decision & Procedures ER Provider Diagnostic Interpretation: ABDOMEN 2VIEW W/PA CHEST RTN CLINICAL HISTORY: Epigastric abd pain. NVD pain. Nausea. COMPARISON STUDY: No previous studies for comparison. FINDINGS: The soft tissues, psoas shadows, renal outlines and intestinal gas pattern appear normal. There is no evidence for bowel obstruction. There is no evidence for free intraperitoneal air. No abnormal abdominal calcifications are seen. A frontal view of the chest was performed and is unremarkable. IMPRESSION: Normal study. Laboratory Results 12/25/17 00:25 Red Blood Count 4.82, Mean Corpuscular Volume 90.5, Mean Corpuscular Hemoglobin 31.1, Mean Corpuscular Hemoglobin Concent 34.4, Mean Platelet Volume 9.8, Neutrophils (%) (Auto) 87.1, Lymphocytes (%) (Auto) 3.5, Monocytes (%) (Auto) 7.2, Eosinophils (%) (Auto) 1.7, Basophils (%) (Auto) 0.2, Neutrophils # (Auto) 9.72, Lymphocytes # (Auto) 0.39, Monocytes # (Auto) 0.80, Eosinophils # (Auto) 0.19, Basophils # (Auto) 0.02 12/25/17 00:25 Test 12/25/17 00:25 12/25/17 03:15 White Blood Count 11.15 K/uL (4.8-10.8) Red Blood Count 4.82 M/uL (4.2-5.4) Hemoglobin 15.0 g/dL (12.0-16.0) Hematocrit 43.6 % (37-47) Mean Corpuscular Volume 90.5 fL (80-100) Mean Corpuscular Hemoglobin 31.1 pg (25-34) Mean Corpuscular Hemoglobin Concent 34.4 g/dl (32-36) Platelet Count 212 K/uL (130-400) Mean Platelet Volume 9.8 fL (7.4-10.4) Neutrophils (%) (Auto) 87.1 % Lymphocytes (%) (Auto) 3.5 % Monocytes (%) (Auto) 7.2 % Eosinophils (%) (Auto) 1.7 % Basophils (%) (Auto) 0.2 % Neutrophils # (Auto) 9.72 K/uL (1.4-6.5) Lymphocytes # (Auto) 0.39 K/uL (1.2-3.4) Monocytes # (Auto) 0.80 K/uL (0.11-0.59) Eosinophils # (Auto) 0.19 K/uL (0-0.5) Basophils # (Auto) 0.02 K/uL (0-0.2) RDW Standard Deviation 43.7 fL (36.4-46.3) RDW Coefficient of Variation 13.2 % (11.5-14.5) Immature Granulocyte % (Auto) 0.3 % Immature Granulocyte # (Auto) 0.03 K/uL (0.00-0.02) Anion Gap 10.0 mmol/L (3-11) Est Creatinine Clear Calc Drug Dose 73.4 ml/min Estimated GFR () 100.2 Estimated GFR (Non- 86.5 BUN/Creatinine Ratio 29.2 (10-20) Calcium Level 8.3 mg/dl (8.5-10.1) Magnesium Level 2.0 mg/dl (1.8-2.4) Total Bilirubin 0.5 mg/dl (0.2-1) Aspartate Amino Transf (AST/SGOT) 18 U/L (15-37) Alanine Aminotransferase (ALT/SGPT) 21 U/L (12-78) Alkaline Phosphatase 52 U/L (45-117) Total Creatine Kinase 118 U/L (26-192) Troponin I < 0.015 ng/ml (0-0.045) Total Protein 6.8 gm/dl (6.4-8.2) Albumin 3.6 gm/dl (3.4-5.0) Globulin 3.2 gm/dl (2.5-4.0) Albumin/Globulin Ratio 1.1 (0.9-2) Lipase 95 U/L (73-393) Urine Color YELLOW Urine Appearance CLEAR (CLEAR) Urine pH 5.0 (4.5-7.5) Urine Specific [place] 1.026 (1.000-1.030) Urine Protein NEG (NEG) Urine Glucose (UA) NEG (NEG) Urine Ketones 3+ (NEG) Urine Occult Blood NEG (NEG) Urine Nitrite NEG (NEG) Urine Bilirubin NEG (NEG) Urine Urobilinogen NEG (NEG) Urine Leukocyte Esterase NEG (NEG) Urine Test NEG (NEG) Medications Administered Medications (Trade) Dose Ordered Sig/Peg Route Start Time Stop Time Status Last Admin Dose Admin Sodium Chloride 1,000 ml @ 999 mls/hr Q1H1M ONCE IV 12/25/17 00:00 12/25/17 01:00 DC 12/25/17 00:30 999 MLS/HR Sodium Chloride 1,000 ml @ 999 mls/hr Q1H1M ONCE IV 12/25/17 00:00 12/25/17 01:00 DC 12/25/17 01:16 999 MLS/HR Ondansetron HCl (Zofran Inj) 4 mg NOW STAT IV 12/24/17 23:56 12/24/17 23:58 DC 12/25/17 00:30 4 MG Ondansetron HCl (ZOFRAN ODT 4MG Home [facility]) [facility] ON[facility] PO 12/25/17 03:45 12/25/17 03:46 DC 12/25/17 04:17 1 HOMEPACK ED Course Physical exam and history were performed. Nursing notes, EMR, and Medication List were personally reviewed. Patient appears to have had multiple episodes of nausea, vomiting, and diarrhea today. Patient is usually healthy and is training for a race. IV access was established and labs were obtained as she does appear dry on examination. She was hydrated with 2 L normal saline. She was given Zofran. Abdominal films were performed. Urine was collected. The patient's blood work is as above and was reviewed. She does not have a significantly elevated white blood cell count, gross anemia, bandemia. Transaminases are not diagnostic. CK is within normal limits. Her urine does show some ketones which would be consistent with dehydration. She does not have significant electrolyte abnormality. BUN and creatinine are essentially normal. X-ray was reviewed by myself and radiology as showing no significant acute findings. On reevaluation the patient was sleeping comfortably in her ER bed. She continues with some very mild epigastric discomfort, but does not have findings to suggest additional infectious symptoms. I discussed options of care with the patient, who does appear comfortable with discharge home. I will give her a short course of Zofran and a few days off work. I suspect her symptoms are likely viral or foodborne etiology. She is to follow with her primary care physician with any ongoing or persisting symptoms. She was certainly invited back to the ER if symptoms worsened, and was pleased with this plan. The chart was completed utilizing [employer] Speech Voice Recognition Software. Grammatical errors, random word insertions, pronoun errors, and incomplete sentences are an occasional consequence of this system due to software limitations, ambient noise, and hardware issues. Any formal questions or concerns about the content, text, or information contained within the body of this dictation should be directly addressed to the provider for clarification. . Medical Decision Differential diagnosis: Etiologies such as gastroenteritis, food borne illness, infections, appendicitis , diverticulitis, inflammatory bowel disease, obstruction, GI bleed, biliary pathology, as well as others were entertained. Impression Primary Impression: Nausea vomiting and diarrhea Additional Impression: Dehydration Departure Information Dispostion Home / Self-Care Condition GOOD Prescriptions Ondasetron Odt (ZOFRAN ODT) 4 Mg Tab 4 MG SL Q6H for Nausea, #12 TAB Prov: Edwin Kumari PA-C 12/25/17 Forms HOME CARE DOCUMENTATION FORM, Work Instructions, Additional Instructions: Patient was seen and evaluated today in the emergency department fo medical care. Return to work on 12/28/2017. Please excuse. IMPORTANT VISIT INFORMATION Patient Instructions My [facility] Additional Instructions You were seen and evaluated today on an emergency basis only. This is not a substitute for, or an effort to provide, complete comprehensive medical care. It is not possible to recognize and treat all injuries or illnesses in a single emergency department visit. For this reason it is recommended that you followup with your primary care physician this week for recheck of your condition. Zofran 4 mg ODT: Dissolve 1 tablet every 6 hrs as needed for nausea. Drink plenty of fluids and remain well-hydrated. You are welcome to return to the emergency department anytime with new, worsening, or concerning symptoms. Work Instructions Additional Work Instructions: Patient was seen and evaluated today in the emergency department for medical care. Return to work on 12/28/2017. Please excuse. Problem Qualifiers
== END 2017-12-25 04:25 | disposition home or self-care (01) ==
LOC: C.EDB 23:01
DX: R11.2 Nausea with vomiting, unspecified (principal); R19.7 Diarrhea, unspecified; E86.0 Dehydration; F32.9 Major depressive disorder, single episode, unspecified; K57.90 Diverticulosis of intestine, part unspecified, without perforation or abscess without bleeding